=== PATIENT | female | born 1975 | race Caucasian/White ===

== ENCOUNTER 2019-12-15 09:49 | Emergency (ER) | payer MEDICAID ==
[~2019-12-15] VITALS: Ht 154.9 cm; Wt 63.5 kg
[2019-12-15 10:03] VITALS: BP 117/80
--- NOTE | 2019-12-15 10:07 | NUR ---
Patient ambulated to bed 7 with family. RN evaluating patient at bedside.
--- NOTE | 2019-12-15 10:40 | NUR ---
PT WHEELED TO XR BY SENIOR WAREHOUSE CLERK.
--- NOTE | 2019-12-15 10:48 | NUR ---
Patient returned from XRAY. RN re-evaluating patient at bedside.
--- NOTE | 2019-12-15 11:00 | NUR ---
44Y/F PRESENTS TO ED WITH C/O R KNEE PAIN X 1 MONTH, DENIES INJURY, WORSEING PAIN YESTEDAY WHILE AM[facility]ULATING [facility]. SLIGHT SWELLING TO R MEDIAL ASPECT OF KNEE. C/O NEEDLE LIKE PAIN, 08/31. WORSENING PAIN WHILE BENDING KNEE. PT LAST TOOK MOTRIN 600MG THIS MORNING AT 9AM, SLIGHT RELIEF. SENSORY AND CIRCULATION INTACT. LUNGS CLEAR THROUGHOUT. VSS. DENIES MEDICAL HX DENIES ALLERGIES TO RX
--- NOTE | 2019-12-15 11:41 | NUR ---
Dr. Verde is evaluating the patient at bedside.
[2019-12-15] MEDS ORDERED: KETOROLAC 60 MG/2 ML VIAL IM ONE (11:45)
--- NOTE | 2019-12-15 11:46 | NUR ---
DR. BETANCUR AT BEDSIDE.
--- NOTE | 2019-12-15 12:11 | NUR ---
TWANA PAIN 7/10 AFTER TORADOL 60MG
[2019-12-15 12:14] VITALS: BP 117/80
== END 2019-12-15 12:15 | disposition home or self-care (01) ==
LOC: MED 09:49
DX: M25.561 Pain in right knee (principal)
CPT/HCPCS: 73562; 96372; 99283; J1885